=== PATIENT | male | born 2000 | race Caucasian/White ===

== ENCOUNTER 2025-05-03 09:39 | Outpatient (RCR) | payer OTHER, SELFPAY ==
--- NOTE | 2025-05-03 11:03 | OTOPEVDC ---
Assessment and note entered by Marlon Cross, OTR/L, CHT Thank you for referring Doug Best to [facility].? An evaluation has been completed. No further treatment is needed. Evaluation Information Assessment Status Evaluation Diagnosis Spastic quadriplegic cerebral palsy Subjective Information Patient referred to our clinic for a stander evaluation. Assessment OT Clinical Summary Patient presents with his parents. They report he uses a w/c for all mobility and a ceiling lift for all transfers. They have a stander at home that they use twice a day and this stander is from 2010 . The stander is worn down from use and age and is becoming dangerous to use. A new stander will benefit this patient to achieve a standing position for an individual who is unable to stand on his own. This will provide an alternative to sitting in a wheelchair. This is beneficial to the patient for the management of tone, improve functional strength via weight bearing, and to reduce further joint contractures, which helps with pain and reducing burden of care on his caregivers for ADLs. Recommending the following accessories: Lateral supports and hip supports for upright positioning, keeping hips centered and keeping trunk centered due to limited trunk control and tone. Independent adjustable knee supports required due to leg length discrepancy. Swing away frame to increase safety and ease with transfers. Tray for UE support/anterior support in standing. Chest strap to restrict falling forward . Seat belt to restrain hips into the system. Head rest for posterior head support. Height and angle adjustable foot plate and straps for LE tone, placement of feet with AFOs in equipment. No further skilled OT indicated at this time. This was a 1 time visit for a stander evaluation. Thank you for this referral. OT Services Indicated No
== END 2025-05-07 09:52 | disposition home or self-care (01) ==
LOC: ANHOT 09:39
DX: G80.0 Spastic quadriplegic cerebral palsy (principal)
CPT/HCPCS: 97167